=== PATIENT | female | born 1985 | race Caucasian/White ===

== ENCOUNTER 2018-08-29 16:30 | Outpatient (CLI) | payer OTHER ==
[2018-08-29 17:04] LABS: APPEARANCE,URINE SLIGHTLY-CLOUDY; BILIRUBIN,URINE NEGATIVE (NEGATIVE); COLOR,URINE YELLOW; GLUCOSE, URINE NEGATIVE (NEGATIVE); KETONES,URINE NEGATIVE (NEGATIVE); LEUKOCYTE ESTERASE,URINE SMALL (NEGATIVE); NITRITE,URINE NEGATIVE (NEGATIVE); PROTEIN,URINE NEGATIVE (NEGATIVE); URINE SPECIFIC GRAVITY 1.004; UROBILINOGEN,URINE NEGATIVE mg/dL (<2.0)
[2018-08-29 17:21] LABS: URINE AMPHETAMINES SCREEN NEGATIVE; URINE BARBITURATES SCREEN NEGATIVE; URINE BENZODIAZEPINES SCREEN NEGATIVE; URINE COCAINE SCREEN NEGATIVE; URINE MARIJUANA (THC) SCREEN NEGATIVE; URINE METHADONE SCREEN NEGATIVE; URINE PHENCYCLIDINE SCREEN NEGATIVE
[2018-08-29 17:26] LABS: UR PRO/CREAT RATIO RESULT 0.7 mg/mg (0.0-0.2); URINE CREATININE 23.5 mg/dL (16-327); URINE PROTEIN 16.5 mg/dL (<12)
[2018-08-29 17:46] LABS: ABSOLUTE EOSINOPHILS # (AUTO) 0.1 10^3/uL (0.0-0.6); ABSOLUTE LYMPHOCYTES (AUTO) 1.6 10^3/uL (0.5-4.7); ABSOLUTE MONOCYTES (AUTO) 0.7 10^3/uL (0.1-1.4); ABSOLUTE NEUT (AUTO) 7.2 10^3/uL (1.7-8.2); BASOPHILS % (AUTO) 0.4 % (0-2); EOSINOPHILS % (AUTO) 0.6 % (0-6); HEMATOCRIT 37.9 % (36.0-47.0); HEMOGLOBIN 13.5 g/dL (12.0-15.5); MEAN CORPUSCULAR HGB CONC 35.5 g/dL (32.0-36.0); MEAN CORPUSCULAR VOLUME 90 fl (80-97); MONOCYTES % (AUTO) 7.2 % (3-13); PLATELET COUNT 205 10^3/uL (150-450); RED BLOOD COUNT 4.21 10^6/uL (3.72-5.28); RED CELL DISTRIBUTION WIDTH 13.8 % (11.5-14.0); SEGMENTED NEUTROPHILS % (AUTO) 74.8 % (42-78); TOTAL CELLS COUNTED % (AUTO) 100 %; WHITE BLOOD COUNT 9.6 10^3/uL (4.0-10.5)
[2018-08-29 18:09] LABS: ALANINE AMINOTRANSFERASE 33 U/L (9-52); ALBUMIN 3.8 g/dL (3.5-5.0); ALKALINE PHOSPHATASE 159 U/L (38-126); ANION GAP 14 (5-19); ASPARTATE AMINO TRANSFERASE 35 U/L (14-36); BILIRUBIN,DIRECT 0.2 mg/dL (0.0-0.4); BILIRUBIN,TOTAL 0.6 mg/dL (0.2-1.3); BLOOD UREA NITROGEN 12 mg/dL (7-20); CALCIUM 9.6 mg/dL (8.4-10.2); CARBON DIOXIDE 24 mmol/L (22-30); CHLORIDE 101 mmol/L (98-107); GLUCOSE 67 mg/dL (75-110); POTASSIUM 3.9 mmol/L (3.6-5.0); SODIUM 138.6 mmol/L (137-145); TOTAL PROTEIN 6.8 g/dL (6.3-8.2); URIC ACID 5.6 mg/dL (2.5-6.2)
--- NOTE | 2018-08-29 20:43 | Non Stress Test Report ---
Non Stress Test Datetime Report Generated by CPN: 08/29/2018 20:43 DEMOGRAPHIC EGA NST: 38.5 INDICATION Indication for Study: Ordered by Provider Indication for Study (NST) Other: pre-e w/u URINE RESULTS Urine Protein, NST: Negative Urine Ketones - NST: Negative Urine Glucose - NST: Negative Urine Blood - NST: Negative MONITORING Monitor Explained: Monitor Explained; Test Explained; Patient Verbalized Understanding Time on Monitor: 08/29/2018 17:08 Time off Monitor: 08/29/2018 19:51 NST Duration: 163 NST INTERVENTIONS NST Interventions: PO Hydration; Reposition Patient Physician Notified NST: DR JENIFFER BABY A: [id number] BABY A Movement : Present Contraction Frequency : OCC FHR Baseline : 125 Accelerations : 15X15 Variability : Moderate 6-25bpm NST Review: Meets Criteria for Reactive NST NST Review and Verified By : darlene HERNANDEZT Results: Reactive NST REPORT Report Trigger: Send Report
== END 2018-08-29 20:10 | disposition home or self-care (01) ==
LOC: LC 16:30
PROVIDERS: ATTEND Obstetrics & Gynecology
PROC: 4A1HXCZ Monitoring of Products of Conception, Cardiac Rate, External Approach (ICD-10-PCS; principal; 2018-08-29)
DX: O47.1 False labor at or after 37 completed weeks of gestation (principal); Z3A.38 38 weeks gestation of pregnancy
CPT/HCPCS: 36415; 59025; 80053; 80307; 81005; 82570; 83615; 84156; 84550; 85025

== ENCOUNTER 2018-09-05 11:42 | Outpatient (CLI) | payer OTHER ==
[2018-09-05 12:08] LABS: APPEARANCE,URINE CLEAR; BILIRUBIN,URINE NEGATIVE (NEGATIVE); COLOR,URINE COLORLESS; GLUCOSE, URINE NEGATIVE (NEGATIVE); KETONES,URINE NEGATIVE (NEGATIVE); LEUKOCYTE ESTERASE,URINE NEGATIVE (NEGATIVE); NITRITE,URINE NEGATIVE (NEGATIVE); PROTEIN,URINE NEGATIVE (NEGATIVE); URINE SPECIFIC GRAVITY 1.002; UROBILINOGEN,URINE NEGATIVE mg/dL (<2.0)
[2018-09-05 12:27] LABS: URINE AMPHETAMINES SCREEN NEGATIVE; URINE BARBITURATES SCREEN NEGATIVE; URINE BENZODIAZEPINES SCREEN NEGATIVE; URINE COCAINE SCREEN NEGATIVE; URINE MARIJUANA (THC) SCREEN NEGATIVE; URINE METHADONE SCREEN NEGATIVE; URINE PHENCYCLIDINE SCREEN NEGATIVE
[2018-09-05 12:31] LABS: UR PRO/CREAT RATIO RESULT 0.8 mg/mg (0.0-0.2); URINE CREATININE 20.1 mg/dL (16-327); URINE PROTEIN 16.9 mg/dL (<12)
[2018-09-05 12:53] LABS: ABSOLUTE LYMPHOCYTES (AUTO) 1.2 10^3/uL (0.5-4.7); ABSOLUTE MONOCYTES (AUTO) 0.4 10^3/uL (0.1-1.4); ABSOLUTE NEUT (AUTO) 6.3 10^3/uL (1.7-8.2); BASOPHILS % (AUTO) 0.2 % (0-2); EOSINOPHILS % (AUTO) 0.2 % (0-6); HEMATOCRIT 37.8 % (36.0-47.0); HEMOGLOBIN 13.3 g/dL (12.0-15.5); LYMPHOCYTES % (AUTO) 15.4 % (13-45); MEAN CORPUSCULAR HGB CONC 35.2 g/dL (32.0-36.0); MEAN CORPUSCULAR VOLUME 91 fl (80-97); PLATELET COUNT 193 10^3/uL (150-450); RED BLOOD COUNT 4.15 10^6/uL (3.72-5.28); RED CELL DISTRIBUTION WIDTH 13.7 % (11.5-14.0); SEGMENTED NEUTROPHILS % (AUTO) 79.2 % (42-78); TOTAL CELLS COUNTED % (AUTO) 100 %; WHITE BLOOD COUNT 7.9 10^3/uL (4.0-10.5)
[2018-09-05 13:19] LABS: URIC ACID 5.9 mg/dL (2.5-6.2)
[2018-09-05 13:20] LABS: ALANINE AMINOTRANSFERASE 26 U/L (9-52); ALBUMIN 3.5 g/dL (3.5-5.0); ALKALINE PHOSPHATASE 149 U/L (38-126); ANION GAP 11 (5-19); ASPARTATE AMINO TRANSFERASE 26 U/L (14-36); BILIRUBIN,DIRECT 0.1 mg/dL (0.0-0.4); BILIRUBIN,TOTAL 0.4 mg/dL (0.2-1.3); BLOOD UREA NITROGEN 6 mg/dL (7-20); CARBON DIOXIDE 25 mmol/L (22-30); CHLORIDE 104 mmol/L (98-107); GLUCOSE 92 mg/dL (75-110); SODIUM 140.3 mmol/L (137-145); TOTAL PROTEIN 6.3 g/dL (6.3-8.2)
--- NOTE | 2018-09-05 13:55 | L&D Progress Notes ---
PROGRESS NOTES Datetime Report Generated by CPN: 09/05/2018 13:55 PROGRESS NOTE Impression: Eclampsia - Mild Plan Other: Left AMA Informed Consent Obtained: Induction of Labor Comment: Pre E with elevated BPs x 3 in office and 24 hr UTP 564. Now protein: creatinine ratio now higher and severe range BP in office today. Asymptomatic. However, 39+5 and recommended IOL. Pt declines. Reviewed risks of Ecclampsia, abruption, maternal/ morbidity and mortality. Also reviewed macrosomia with EFW 10# on 08/27. Reviewed risks at length and patient persists in declining IOL. SHe agrees to come in for IOL on Adalid evening. She was advised that if declining IOl that she will need to sign AMA. AMA form signed. cvx /. FETUS A Monitoring: External US SIGNATURE SIGNATURE: [id number];[id number] SIGNATURE: [id number] Signature: with User ID: [email or web address]
--- NOTE | 2018-09-05 14:19 | Non Stress Test Report ---
Non Stress Test Datetime Report Generated by CPN: 09/05/2018 14:19 DEMOGRAPHIC EGA NST: 39.5 INDICATION Indication for Study: Ordered by Provider MONITORING Monitor Explained: Monitor Explained; Test Explained; Patient Verbalized Understanding Time on Monitor: 09/05/2018 11:51 Time off Monitor: 09/05/2018 13:54 NST Duration: 123 NST INTERVENTIONS NST Interventions: PO Hydration; Reposition Patient Physician Notified NST: Dr. Marks BABY A: [id number] BABY A Movement : Present Contraction Frequency : x1 FHR Baseline : 130 Accelerations : 15X15 Decelerations : None Variability : Moderate 6-25bpm NST Review: Meets Criteria for Reactive NST NST Review and Verified By : Jose Antonio Hauser RN NST Results: Reactive NST REPORT Report Trigger: Send Report
== END 2018-09-05 14:03 | disposition left against medical advice (07) ==
LOC: LC 11:42
PROVIDERS: ATTEND Student in an Organized Health Care Education/Training Program
PROC: 4A1HXCZ Monitoring of Products of Conception, Cardiac Rate, External Approach (ICD-10-PCS; principal; 2018-09-05)
DX: Z34.93 Encounter for supervision of normal pregnancy, unspecified, third trimester (principal)
CPT/HCPCS: 36415; 59025; 80053; 80307; 81005; 82570; 83615; 84156; 84550; 85025; 86592; 86850; 86900; 86901

== ENCOUNTER 2018-09-07 20:06 | Inpatient (IN) | payer OTHER ==
[2018-09-07] MEDS ORDERED: DINOPROSTONE 10 MG VAGINAL INSERT.SR PV PRN (20:24)
[2018-09-07] MEDS ORDERED: RINGERS SOLUTION,LACTATED 300 ML IV ONE (20:24)
[2018-09-07 20:46] LABS: APPEARANCE,URINE CLEAR; BILIRUBIN,URINE NEGATIVE (NEGATIVE); COLOR,URINE COLORLESS; GLUCOSE, URINE NEGATIVE (NEGATIVE); KETONES,URINE NEGATIVE (NEGATIVE); LEUKOCYTE ESTERASE,URINE NEGATIVE (NEGATIVE); NITRITE,URINE NEGATIVE (NEGATIVE); PROTEIN,URINE NEGATIVE (NEGATIVE); URINE SPECIFIC GRAVITY 1.002; UROBILINOGEN,URINE NEGATIVE mg/dL (<2.0)
[2018-09-07 20:51] LABS: ABSOLUTE BASOPHILS # (AUTO) 0.1 10^3/uL (0.0-0.2); ABSOLUTE LYMPHOCYTES (AUTO) 1.9 10^3/uL (0.5-4.7); ABSOLUTE MONOCYTES (AUTO) 0.7 10^3/uL (0.1-1.4); ABSOLUTE NEUT (AUTO) 6.5 10^3/uL (1.7-8.2); BASOPHILS % (AUTO) 0.7 % (0-2); EOSINOPHILS % (AUTO) 0.5 % (0-6); HEMATOCRIT 37.4 % (36.0-47.0); HEMOGLOBIN 13.3 g/dL (12.0-15.5); MEAN CORPUSCULAR HEMOGLOBIN 32.2 pg (27.0-33.4); MEAN CORPUSCULAR HGB CONC 35.6 g/dL (32.0-36.0); MEAN CORPUSCULAR VOLUME 90 fl (80-97); MONOCYTES % (AUTO) 7.5 % (3-13); PLATELET COUNT 197 10^3/uL (150-450); RED BLOOD COUNT 4.14 10^6/uL (3.72-5.28); RED CELL DISTRIBUTION WIDTH 13.6 % (11.5-14.0); SEGMENTED NEUTROPHILS % (AUTO) 70.3 % (42-78); TOTAL CELLS COUNTED % (AUTO) 100 %; WHITE BLOOD COUNT 9.3 10^3/uL (4.0-10.5)
[2018-09-07] MEDS: RINGERS SOLUTION,LACTATED 1,000 ML IV PRN (20:55)
[2018-09-07 21:11] LABS: URINE AMPHETAMINES SCREEN NEGATIVE; URINE BARBITURATES SCREEN NEGATIVE; URINE BENZODIAZEPINES SCREEN NEGATIVE; URINE COCAINE SCREEN NEGATIVE; URINE MARIJUANA (THC) SCREEN NEGATIVE; URINE METHADONE SCREEN NEGATIVE; URINE PHENCYCLIDINE SCREEN NEGATIVE
[2018-09-07 21:12] LABS: ALANINE AMINOTRANSFERASE 26 U/L (9-52); ALBUMIN 3.6 g/dL (3.5-5.0); ALKALINE PHOSPHATASE 156 U/L (38-126); ANION GAP 11 (5-19); ASPARTATE AMINO TRANSFERASE 26 U/L (14-36); BILIRUBIN,DIRECT 0.1 mg/dL (0.0-0.4); BILIRUBIN,TOTAL 0.3 mg/dL (0.2-1.3); BLOOD UREA NITROGEN 7 mg/dL (7-20); CALCIUM 9.4 mg/dL (8.4-10.2); CARBON DIOXIDE 24 mmol/L (22-30); CHLORIDE 103 mmol/L (98-107); GLUCOSE 87 mg/dL (75-110); POTASSIUM 4.1 mmol/L (3.6-5.0); SODIUM 138.2 mmol/L (137-145); TOTAL PROTEIN 6.5 g/dL (6.3-8.2); URIC ACID 5.7 mg/dL (2.5-6.2)
[2018-09-07] MEDS ORDERED: DINOPROSTONE 10 MG VAGINAL INSERT.SR ONE (21:55)
--- NOTE | 2018-09-07 23:35 | Admission Physical ---
Datetime Report Generated by CPN: 09/07/2018 23:34 CURRENT ADMISSION Chief Complaint: Scheduled Induction of Labor Indication for Induction: Eclampsia-Mild Admit Impression : Term, Intrauterine ; No Active Labor; Intact Membranes; Induction of Labor Admit Plan: Admit to Unit; Initiate Labor Induction Protocol ALLERGIES Medication Allergies: No Medication Allergies: No Known Allergies (09/07/2018) Latex: No Latex Allergies OBSTETRICAL HISTORY EDC: 09/07/2018 00:00 : 1 Para: 0 Term: 0 : 0 SAB: 0 IAB: 0 Ectopic: 0 Livin Cesareans: 0 VBACs: 0 Multiple Births: 0 Gestational Diabetes: No Rh Sensitization: No Incompetent Cervix: No AURA: No Infertility: No ART Treatment: No Uterine Anomaly: No IUGR: No Hx Previous C/S: No Macrosomia: Yes Hx Loss/Stillborn: No PIH: No Hx : No Placenta Previa/Abruption: No Depression/PP Depression: No PTL/PROM: No Post Hemorrhage: No Current Procedures: Ultrasound; NST Obstetrical History Comments: G1 - Current SEE RECORDS Alcohol: No Marijuana : No Cocaine: No Other Illicit Drugs: No MEDICAL HISTORY Diabetes: No Blood Transfusion: No Pulmonary Disease (Asthma, TB): No Breast Disease: No Hypertension: No Bank Clerk Surgery: No Heart Disease: No Hosp/Surgery: Yes Autoimmune Disorder: No Anesthetic Complications: No Kidney Disease: No Abnormal Pap Smear: No Neuro/Epilepsy: No Psychiatric Disorders: No Other Medical Diseases: No Hepatitis/Liver Disease: No Significant Family History: No Varicosities/Phlebitis: No Trauma/Violence : No Thyroid Dysfunction: No Medical History Comments: Tonsilectomy at age 7 INFECTIOUS HISTORY Gonorrhea: No Genital Herpes: No Chlamydia: No Tuberculosis: No Syphilis: No Hepatitis: No HIV/AIDS Exposure: No Rash or Viral Illness: No HPV: No PHYSICAL EXAM General: Normal HEENT: Normal Neurologic: Normal Thyroid: Deferred Heart: Normal Lungs: Normal Breast: Deferred Back: Normal Abdomen: Normal Genitourinary Exam: Normal Extremities: Normal DTRs: Normal Pelvic Type: Adequate Vital Signs: Reviewed VAGINAL EXAM Contraction Comments: rare MEMBRANES Membranes: Ruptured FETUS A EGA: 40.0 Monitoring: External US FHR- Baseline: 130 Variability: Moderate 6-25bpm Accelerations: 15X15 Decelerations: None FHR Category: Category I Presentation: Vertex Admit Comment: 33yo at 40+0ega presents for IOL due to PreE. Pt was scheduled for IOL on 09/02 and declined/did not show up. Patient then sent from office on 09/05 with noted severe range BP in office - known 24 hr UTP 564mg. On 09/05 at 39+5ega with known preE it was recommended that she be induced. She declined and signed out AMA. She has remained asymptomatic. She presents today for her IOL. also complicated by suspected macrosomia with growth on 08/27 4537g (10#). GBS negative. All methods of Induction and risks of induction reviewed with patient on 09/05. Reviewed cervidil/cytotec, pitocin and cooks catheter. She informs nursing tonight that she wants minimal intervention but does agree to heplock IV and then does agree to cervidil but states that she will decline cooks in the morning. We will have to readress induction of labor and the process again in the morning. Reviewed with patient on 09/05 also regarding EFW and potential labor course including possible cephalopelvic disproportion which would necessitate section. Will monitor BPs and labs and not start magnesium sulfate at this time but may be needed in the future or after delivery. GBS negative. PLANS FOR LABOR AND DELIVERY Labor and Delivery: None Pain Management: Natural Feeding Preference: Breast Benefit of Breast Feed Discussed: Yes Circumcision: Yes INFORMED CONSENT Informed Consent Obtained: Vaginal Delivery; Induction of Labor; Risks, Benefits and Alternatives Discussed Signature: Electronically signed by Martha Marks MD ([facility]) on 09/07/2018 at 23:33 with User ID: [email or web address]
[2018-09-08] MEDS ORDERED: OXYTOCIN/NORMAL SALINE 20 UNIT/1,000 ML RTUINJ IV PRN (11:44)
[2018-09-08] MEDS ORDERED: LIDOCAINE 1% INJ-PF (10 MG/ML) 30 ML SDV ONE (12:02)
[2018-09-08] MEDS ORDERED: OXYTOCIN/NORMAL SALINE 20 UNIT/1,000 ML RTUINJ ONE (12:02)
[2018-09-08] MEDS ORDERED: OXYTOCIN 10 UNIT/ML VIAL ONE (12:02)
[2018-09-08] MEDS ORDERED: MISOPROSTOL 0.2 MG TABLET ONE (12:02)
[2018-09-08] MEDS: RINGERS SOLUTION,LACTATED 1,000 ML IV PRN (12:30)
[2018-09-09] MEDS ORDERED: NALBUPHINE HCL INJ 10 MG/1 ML AMPULE INJ ONE (01:26)
[2018-09-09] MEDS ORDERED: PROMETHAZINE HCL INJ 25 MG/1 ML VIAL IV ONE (01:27)
[2018-09-09] MEDS ORDERED: NALBUPHINE HCL INJ 10 MG/1 ML AMPULE ONE (01:28)
[2018-09-09] MEDS ORDERED: PROMETHAZINE HCL INJ 25 MG/1 ML VIAL ONE (01:28)
[2018-09-09] MEDS: RINGERS SOLUTION,LACTATED 1,000 ML IV PRN (01:34)
--- NOTE | 2018-09-09 08:56 | L&D Progress Notes ---
PROGRESS NOTES Datetime Report Generated by CPN: 09/09/2018 08:56 PROGRESS NOTE Impression Other: IUP @ 40w2d Procedures: Artificial ROM; Sterile Vag Exam Plan: Continue Present Management; Induction Informed Consent Obtained: Vaginal Delivery; Induction of Labor; Risks, Benefits and Alternatives Discussed Informed Consent Obtained: Vaginal Delivery; Induction of Labor; Risks, Benefits and Alternatives Discussed Vital Signs : Reviewed; Within Normal Limits Comment: S: breathing with contractions, not planning on epidural for pain relief O:VSS, pit @ 10mu/min, cat I tracing, cervix as stated A: IUP @ [id number] P: continue IOL. Reviewed plan of care with patient and . Anticipate delivery. Epidural prn. VAGINAL EXAM Contractions: rare LAST VAGINAL EXAM-NURSING Dilitation: 7.0 Dilitation: 6.0 Dilitation: 4.5 Dilitation: 3.0 Dilitation: 3.0 Dilitation: 1.5 Dilitation: FT Effacement: 100 Effacement: 100 Effacement: 90 Effacement: 80 Effacement: 60 Effacement: 50 Effacement: thick Station: -1 Station: 0 Station: 0 Station: -1 Station: -2 Station: -2 Station: high Contractions: Pt denies feeling ctx's. Contractions: Pt denies feeling ctx's. Contractions: Pt denies feeling ctx's; uterine irritability noted. Contractions: Pt denies feeling ctx's; uterine irritability noted. Contractions: Pt denies feeling ctx's; uterine irritability noted. Contractions: Pt denies feeling ctx's; uterine irritability noted. Contractions: Pt denies feeling ctx's; uterine irritability noted. Contractions: Pt denies feeling ctx's; uterine irritability noted. MEMBRANES Membranes: Ruptured Amniotic Fluid Color: Clear FETUS A FHR - Baseline: 125 Monitoring: External US Variability: Moderate 6-25bpm Accelerations: 15X15 Decelerations: None FHR Category: Category I Presentation: Vertex SIGNATURE SIGNATURE: [id number];[id number];[id number] SIGNATURE: [id number];[id number];[id number] SIGNATURE: [id number];,[id number] Assignment: Josee Lugo MD Signature: with User ID: [email or web address] : with User ID: [email or web address]
[2018-09-09] MEDS ORDERED: DIPHENHYDRAMINE HCL 50 MG/ML VIAL ONE (14:47)
[2018-09-09] MEDS ORDERED: DIPHENHYDRAMINE HCL 50 MG/ML VIAL IV ONE (14:49)
[2018-09-09] MEDS ORDERED: LIDOCAINE 2% JELLY 5 ML TUBE ONE (16:06)
[2018-09-09] MEDS ORDERED: DIPHENHYDRAMINE HCL 25 MG CAPSULE PO PRN (17:49)
[2018-09-09] MEDS ORDERED: OXYTOCIN/NORMAL SALINE 20 UNIT/1,000 ML RTUINJ IV PRN (17:49)
[2018-09-09] MEDS ORDERED: BENZOCAINE/MENTHOL AEROSOL SPRAY 56 ML TOP PRN (17:49)
[2018-09-09] MEDS ORDERED: MAGNESIUM HYDROXIDE SUSP 30 ML UDCUP PO PRN (17:49)
[2018-09-09] MEDS ORDERED: DIPH/PERTUSS(ACELL)/TETANUS VAC/PF 0.5 ML SYR (>=10YO) IM PRN (17:49)
[2018-09-09] MEDS ORDERED: PSEUDOEPHEDRINE HCL 30 MG TABLET PO PRN (17:49)
[2018-09-09] MEDS ORDERED: GLYCERIN/WITCH HAZEL LEAF 1 EACH MED..PAD TP PRN (17:49)
[2018-09-09] MEDS ORDERED: MEASLES,MUMPS&RUBELLA VACC/PF 0.5 ML VIAL SUBCUT PRN (17:49)
[2018-09-09] MEDS ORDERED: DIBUCAINE 1% OINTMENT 28 GM TP PRN (17:49)
[2018-09-09] MEDS ORDERED: PROMETHAZINE HCL 25 MG TABLET PO PRN (17:49)
[2018-09-09] MEDS ORDERED: NA PHOS,M-B/NA PHOS,DI-BA (ADULT) 133 ML ENEMA PR PRN (17:49)
[2018-09-09] MEDS ORDERED: ACETAMINOPHEN WITH CODEINE #3 TABLET PO PRN ×2 (17:49)
[2018-09-09] MEDS ORDERED: PROMETHAZINE HCL INJ 25 MG/1 ML VIAL IV PRN (17:49)
[2018-09-09] MEDS ORDERED: ACETAMINOPHEN 325 MG TABLET PO PRN (17:49)
[2018-09-09] MEDS ORDERED: PROMETHAZINE HCL 25 MG SUPP.RECT PR PRN (17:49)
[2018-09-09] MEDS ORDERED: IBUPROFEN 800 MG TABLET ONE (18:25)
--- NOTE | 2018-09-09 19:47 | Delivery Summary ---
Del Sum A-C Datetime Report Generated by CPN: 09/09/2018 19:47 DELIVERY PERSONNEL DELIVERY PERSONNEL: [id number] Delivery Doctor:: Nicole Mayer CNM Nurse Dean Of Instruction Certified:: Nicole Mayer CNM Labor and Delivery Nurse:: Pretty Cruz RNentry level java developer Nurse:: Delia Marks RN Radiologist Diagnostic/CITY PLANNING AIDE: Adelaide Holland CNA II Additional Personnel: : MORRSI Bruno MATERNAL INFORMATION Delivery Anesthesia: None Medications After Delivery: Pitocin Bolus-Please Comment Meds After Delivery Comment: Pitocin 20 units in 1000 ml nss open for bolus Maternal Complications: None Provider Comments: pt progressed to c/c/0 with urge to push, started pushing and with much coaching, position changes and maternal effort went on to delivered a viable baby boy in ALEX position thru nuchal x1. Baby placed on maternal abdomen and cord allowed to stop pulsating then clamped x2 and cut by FOB (cord blood obtained). Placenta delivered spontaneously intact (3vc noted), fundus firm at U-1 and minimal bleeding. Vaginal and perineal inspection revealed no lacerations and labial abrasions as stated. Mother and baby remain skin to skin,stable and bonding at this time. LABOR SUMMARY EDC: 09/07/2018 00:00 No. Babies in Womb: 1 Attempted: No Labor Anesthesia: None LABOR INFORMATION Reason for Induction: Pre-Eclampsia Onset of Labor: 09/09/2018 08:45 Complete Dilatation: 09/09/2018 15:42 Cervical Ripening Agents: Cervidil Oxytocin: Induction Group B Beta Strep: Negative Steroids Given: None Reason Steroids Not Administered: Not Applicable MEMBRANES Membranes Rupture Method: Artificial Rupture of Membranes: 09/09/2018 08:47 Length of Rupture (hr): 8.62 Amniotic Fluid Color: Clear Amniotic Fluid Amount: Small Amniotic Fluid Odor: Normal STAGES OF LABOR Stage 1 hr: 6 Stage 1 min: 57 Stage 2 hr: 1 Stage 2 min: 42 Stage 3 hr: 0 Stage 3 min: 8 Total Time in Labor hr: 8 Total Time in Labor min: 47 VAGINAL DELIVERY Episiotomy: None Laceration #1: None Laceration Extension #1: N/A Other Laceration: bilateral labial abrasions-hemostatic Laceration Repair: Not Applicable Laceration Repair Note: n/a Sponge Count Correct: N/A Sharps Count Correct: Yes CSECTION DELIVERY Primary Indication: N/A Secondary Indication: N/A CSection Incidence: N/A Labor: N/A Elective: N/A CSection Incision: N/A BABY A INFORMATION Infant Delivery Date/Time: 09/09/2018 17:24 Method of Delivery: Vaginal Born in Route : No : N/A Forceps: N/A Vacuum Extraction: N/A Shoulder Dystocia : No PRESENTATION/POSITION BABY A Presentation: Cephalic Cephalic Presentation: Vertex Vertex Position: Right Occipital Anterior Breech Presentation: N/A PLACENTA INFORMATION BABY A Placenta Delivery Time : 09/09/2018 17:32 Placenta Method of Delivery: Spontaneous Placenta Status: Delivered SCORES BABY A Heart Rate 1 min: >100 bpm Resp Effort 1 min: Good Cry Reflex Irritability 1 min: Cough or Sneeze or Pulls Away Muscle Tone 1 min: Active Motion Color 1 min: Blue/Pale SCORE 1 MIN: 8 Heart Rate 5 min: >100 bpm Resp Effort 5 min: Slow, Irregular Reflex Irritability 5 min: Cough or Sneeze or Pulls Away Muscle Tone 5 min: Active Motion Color 5 min: Body New Site, Extremities Blue Resuscitation Effort 5 min: N/A SCORE 5 MIN: 8 Resuscitation Effort 10 min: N/A INFORMATION BABY A Gestational Age at Delivery: 40.2 Gestational Status: Full Term- 39- 40.6 Weeks Infant Outcome : Liveborn Infant Condition : Stable Infant Sex: Male IDENTIFICATION BABY A Infant Verification Date/Time: 09/09/2018 18:00 ID Band Number: [id number] Mother's Name Verified: Yes RN Verifying Infant: R Selina RN Additional Verifying Personnel: B PlaceSpeak RN WEIGHT/LENGTH BABY A Birthweight (gm): 4208 Weight (lb): 9 Infant Weight (oz): 4 Length (in): 22.00 Infant Length (cm): 55.88 CORD INFORMATION BABY A No. Cord Vessels: 3 Nuchal Cord : Around Neck x1, Loose Cord Blood Taken: N/A Infant Suction: Mouth; Nose ASSESSMENT BABY A Complications: None Physical Findings at Delivery: Caput Succedaneum; Molding of the Head; Bruising Respirations: Grunting Skin to Skin: Yes Skin to Skin Time (min): 75 Parts Designer/ALS Called : No Care By: Princess Castellon RN Transferred To: Remains with Mother BABY B INFORMATION : N/A SIGNATURES Assignment: Josee Lugo MD Signature: with User ID: [email or web address] : with User ID: [email or web address]
[2018-09-09] MEDS: FAMOTIDINE 20 MG TABLET PO SCH (22:40)
[2018-09-09] MEDS: IBUPROFEN 800 MG TABLET PO SCH (22:40)
[2018-09-10] MEDS: IBUPROFEN 800 MG TABLET PO SCH ×3 (05:38→21:53)
[2018-09-10 08:03] LABS: HEMATOCRIT 40.6 % (36.0-47.0); HEMOGLOBIN 14.1 g/dL (12.0-15.5); MEAN CORPUSCULAR HGB CONC 34.7 g/dL (32.0-36.0); MEAN CORPUSCULAR VOLUME 92 fl (80-97); PLATELET COUNT 206 10^3/uL (150-450); RED CELL DISTRIBUTION WIDTH 13.7 % (11.5-14.0)
[2018-09-10 08:13] LABS: WHITE BLOOD COUNT 18.9 10^3/uL (4.0-10.5)
--- NOTE | 2018-09-10 09:20 | PDOC PROGRESS REPORT ---
Subjective-OB Progress Note for:: 09/10/18 Physical Exam (OB) Vital Signs: Temp Pulse Resp BP Pulse Ox 97.6 F 79 16 119/74 98 09/10/18 08:45 09/10/18 08:45 09/10/18 08:45 09/10/18 08:45 09/10/18 08:45 Intake & Output 09/09/18 09/10/18 09/11/18 06:59 06:59 06:59 Intake Total 1000 1240 Balance 1000 1240 - PIH/Pre-Eclampsia DTR's: 1 + Clonus: Negative Headache: Absent Epigastric Pain: No Visual Changes: No - Lochia Lochia Amount: Scant < 10 ml Lochia Color: Rubra/Red - Abdomen Description: Soft, Round Hernia Present: No Bowel Sounds: Normoactive Flatus Presence: Present Stool: No Fundal Description: Firm, Midline Fundal Height: u/u - u/2 Objective-Diagnostic Laboratory: 09/10/18 07:21 09/07/18 20:40 09/10/18 07:21 WBC 18.9 H D RBC 4.40 Hgb 14.1 Hct 40.6 MCV 92 MCH 32.0 MCHC 34.7 RDW 13.7 Plt Count 206
[2018-09-10] MEDS: DOCUSATE SODIUM 100 MG CAPSULE PO SCH ×3 (10:03→17:51)
[2018-09-10] MEDS: SENNOSIDES/DOCUSATE 8.6-50 MG 1 EACH TABLET PO SCH (10:04)
[2018-09-10] MEDS: FAMOTIDINE 20 MG TABLET PO SCH (10:04)
[2018-09-10] MEDS: FERROUS SULFATE 325 MG TABLET PO SCH ×2 (10:04→17:52)
[2018-09-10] MEDS: PRENATAL VITAMIN W DHA CAPSULE PO SCH (10:04)
[2018-09-11] MEDS: FAMOTIDINE 20 MG TABLET PO SCH ×2 (01:58→09:34)
[2018-09-11 07:58] LABS: HEMATOCRIT 36.6 % (36.0-47.0); HEMOGLOBIN 12.5 g/dL (12.0-15.5); MEAN CORPUSCULAR HEMOGLOBIN 31.9 pg (27.0-33.4); MEAN CORPUSCULAR HGB CONC 34.2 g/dL (32.0-36.0); MEAN CORPUSCULAR VOLUME 93 fl (80-97); PLATELET COUNT 168 10^3/uL (150-450); RED BLOOD COUNT 3.93 10^6/uL (3.72-5.28); RED CELL DISTRIBUTION WIDTH 13.9 % (11.5-14.0); WHITE BLOOD COUNT 10.9 10^3/uL (4.0-10.5)
[2018-09-11] MEDS: IBUPROFEN 800 MG TABLET PO SCH ×2 (09:23→13:34)
[2018-09-11] MEDS: DOCUSATE SODIUM 100 MG CAPSULE PO SCH (09:33)
[2018-09-11] MEDS: PRENATAL VITAMIN W DHA CAPSULE PO SCH (09:33)
[2018-09-11] MEDS: SENNOSIDES/DOCUSATE 8.6-50 MG 1 EACH TABLET PO SCH (09:34)
[2018-09-11] MEDS: FERROUS SULFATE 325 MG TABLET PO SCH (09:34)
--- NOTE | 2018-09-11 10:03 | PDOC DISCHARGE SUMMARY ---
Final Diagnosis Discharge Date: 09/11/18 - Final Diagnosis (1) Delivery normal Is this a current diagnosis for this admission?: Yes (2) Pre-eclampsia Is this a current diagnosis for this admission?: Yes Discharge Data - Discharge Medication Home Medications: Vits96/Iron Fum/Folic [ Tablet] 1 tab PO DAILY 08/29/18 Reason(s) for Admission: Induction of Labor Procedures: NST Intrapartum Procedure(s): Spontaneous Vaginal Delivery Complication(s): Laceration-Labial Laceration-Degree: 1st - Diagnosis Test Laboratory: Temp Pulse Resp BP Pulse Ox 98.0 F 62 17 123/77 99 09/11/18 07:44 09/11/18 07:44 09/11/18 07:44 09/11/18 07:44 09/11/18 07:44 09/07/18 09/07/18 09/10/18 20:30 20:40 07:21 RBC 4.14 4.40 Hgb 13.3 14.1 Hct 37.4 40.6 Urine Opiates Screen NEGATIVE 09/11/18 07:15 RBC 3.93 Hgb 12.5 Hct 36.6 Urine Opiates Screen - Discharge information/Instructions Discharge Activity: Activity As Tolerated, Pelvic Rest Discharge Diet: Regular Disposition: HOME, SELF-CARE Follow up with: [facility] in: 3, Weeks
[2018-09-11 14:05] VITALS: BP 119/74
== END 2018-09-11 15:43 | disposition home or self-care (01) | DRG 807 ==
LOC: LC 20:06 → LR 21:00 → 2S 09-09 20:10
PROVIDERS: ADMIT Student in an Organized Health Care Education/Training Program; ATTEND Student in an Organized Health Care Education/Training Program
PROC: 4A1HXCZ Monitoring of Products of Conception, Cardiac Rate, External Approach (ICD-10-PCS; 2018-09-08)
PROC: 10E0XZZ Delivery of Products of Conception, External Approach (ICD-10-PCS; principal; 2018-09-09)
PROC: 0UQMXZZ Repair Vulva, External Approach (ICD-10-PCS; 2018-09-09)
PROC: 3E0P7VZ Introduction of Hormone into Female Reproductive, Via Natural or Artificial Opening (ICD-10-PCS; 2018-09-09)
PROC: 3E033VJ Introduction of Other Hormone into Peripheral Vein, Percutaneous Approach (ICD-10-PCS; 2018-09-09)
DX: O14.04 Mild to moderate pre-eclampsia, complicating childbirth (principal); Z37.0 Single live birth; O70.0 First degree perineal laceration during delivery; O69.81X0 Labor and delivery complicated by cord around neck, without compression, not applicable or unspecified; Z3A.40 40 weeks gestation of pregnancy
CPT/HCPCS: 36415; 80053; 80307; 81001; 83615; 84550; 85025; 85027; 86592; 86850; 86900; 86901; J1200; J2300; J2550; J2590; J3490

== ENCOUNTER 2018-10-01 10:01 | Emergency (ER) | payer OTHER ==
--- NOTE | 2018-10-01 10:21 | ER Document Report ---
ED Medical Screen (RME) - General Chief Complaint: Abscess Stated Complaint: POSSIBLE ABSCESS Time Seen by Provider: 10/01/18 10:18 Mode of Arrival: Ambulatory Information source: Patient Notes: Pt presents to the ED sent over by [facility] for possible right breast abscess. Pt reports Dr. Lugo wanted her to have a US done. She is 3 weeks I have greeted and performed a rapid initial assessment of this patient. A comprehensive ED assessment and evaluation of the patient, analysis of test results and completion of the medical decision making process will be conducted by additional ED providers. TRAVEL OUTSIDE OF THE [place] IN LAST 30 DAYS: No - Related Data Allergies/Adverse Reactions: No Known Allergies Allergy (Verified 10/01/18 10:06) Physical Exam - Vital signs Vitals: Temp Pulse Resp BP Pulse Ox 99.0 F 87 16 121/72 99 10/01/18 10:14 10/01/18 10:14 10/01/18 10:14 10/01/18 10:14 10/01/18 10:14 Course - Vital Signs Vital signs: Temp Pulse Resp BP Pulse Ox 99.0 F 87 16 121/72 99 10/01/18 10:14 10/01/18 10:14 10/01/18 10:14 10/01/18 10:14 10/01/18 10:14 Doctor's Discharge - Discharge Referrals: ADRY AGUIAR MD [Primary Care Provider] - Follow up as needed
--- NOTE | 2018-10-01 10:54 | ER Document Report ---
ED Skin Rash/Insect Bite/Abscs - General Chief Complaint: Abscess Stated Complaint: POSSIBLE ABSCESS Time Seen by Provider: 10/01/18 10:18 Mode of Arrival: Ambulatory Information source: Patient Notes: Patient is a 33-year-old female who presents to the emergency department, referred by Dr. Lugo at [facility] for left breast abscess. Patient is 3 weeks post vaginal delivery. Patient reports that on Saturday she had a clogged milk duct to the left breast, she was placed on Keflex. Patient reports she then developed redness patient has swelling to the area and was zimmer bsequently placed on Bactrim and given a dose of Rocephin. Patient went back to [facility] this morning and was referred to the emergency department for ultrasound of the breast and surgical consult. Patient denies any fevers, nausea, vomiting or pain. Patient is otherwise healthy with no chronic medical conditions. TRAVEL OUTSIDE OF THE [place] IN LAST 30 DAYS: No - Related Data Allergies/Adverse Reactions: No Known Allergies Allergy (Verified 10/01/18 10:06) Past Medical History - General Information source: Patient - Social History Smoking Status: Never Smoker Chew tobacco use (# tins/day): No Frequency of alcohol use: None Drug Abuse: None Family History: Reviewed & Not Pertinent Patient has suicidal ideation: No Patient has homicidal ideation: No - Medical History Medical History: Negative Renal/ Medical History: Denies: Hx Peritoneal Dialysis Surgical Hx: Negative - Immunizations Immunizations up to date: Yes Review of Systems - Review of Systems Constitutional: No symptoms reported EENT: No symptoms reported Cardiovascular: No symptoms reported Respiratory: No symptoms reported Gastrointestinal: No symptoms reported Genitourinary: No symptoms reported Female Genitourinary: No symptoms reported Musculoskeletal: No symptoms reported Skin: See HPI Hematologic/Lymphatic: No symptoms reported Neurological/Psychological: No symptoms reported Physical Exam - Vital signs Vitals: Temp Pulse Resp BP Pulse Ox 99.0 F 87 16 121/72 99 10/01/18 10:14 10/01/18 10:14 10/01/18 10:14 10/01/18 10:14 10/01/18 10:14 - Notes Notes: Patient was referred by Dr. Lugo to the emergency department for ultrasound of the left breast to evaluate for abscess. Dr. Lugo already consulted general surgery who is going to see the patient in the emergency department after the ultrasound is reported. Patient has large area of erythema and induration noted to the left breast. Patient declines the need for any pain medication. Patient reports that she is breast-feeding however has stopped due to the current situation. Currently awaiting transport to ultrasound. Course - Re-evaluation Re-evalutation: 10/01/18 12:53 Ultrasound reveals a 5 cm x 2 cm x 2 cm abscess to the left breast. Dr. Jennifer garza is at the bedside evaluating the patient. 10/01/18 13:20 Incision and drainage set up at the bedside for Dr. Collazo. 10/01/18 13:48 Dr. Collazo reports he drained approximately 15 cc of fluid from the breast. He would like patient to be discharged home he plans to follow-up with her Saturday morning in his clinic. - Vital Signs Vital signs: Temp Pulse Resp BP Pulse Ox 99.0 F 87 16 121/72 99 10/01/18 10:14 10/01/18 10:14 10/01/18 10:14 10/01/18 10:14 10/01/18 10:14 Discharge - Discharge Clinical Impression: Abscess Condition: Stable Disposition: HOME, SELF-CARE Additional Instructions: ABSCESS: You have an abscess (boil). This a pus-forming infection, usually due to staph. Some boils may be left to drain on their own, but most require lancing. From the time the tender lump first appears, it may be three or four days before the abscess is ready to christal. Local heat and rest help at this stage of treatment. An antibiotic may prevent spread of the infection. Once the abscess is opened, packing may be placed into it. This is done so pus is not sealed inside by premature closure of the cavity. The packing will be removed at your follow-up visit or you may be advised to remove it yourself at home. Sometimes this packing must be replaced a few times during healing. The wound will heal with surprisingly little scar. Depending on the size and location of an abscess, healing can take one to four weeks. You may shower and wash the area around the incision site two or three times a day. Antibiotics may be prescribed, but are usually not necessary after an abscess has been drained. If you develop fever, chills, worsening pain, or increasing swelling in the area, call the doctor or return immediately. POST INCISION AND DRAINAGE: You have had an incision made to allow drainage of an abscess. The incision must remain open so that pus and debris can drain from the wound. If the abscess cavity is large, packing is placed. This keeps the tissues from collapsing and trapping pus inside, while the body shrinks the cavity. The packing may need to be replaced every day or two. The physician will instruct you on the packing. Keep a bulky dressing over the area. Replace it if it becomes saturated with blood or pus. Do not disturb the packing (if present). You may shower and cleanse the area with gentle soap and warm water two or three times a day. Local warmth may be soothing, and may promote faster healing. Return if you develop high fever or chills, or if you note spreading redness, increasing swelling, or increasing tenderness. CEPHALEXIN: The antibiotic you've been prescribed is a member of the cephalosporin class. This type of antibiotic covers a wide variety of infections, including those of the skin, lungs, and urinary tract. It's useful for staph infections. This antibiotic is slightly similar to the penicillin family. In rare cases, a person who is allergic to penicillin will also be allergic to this medication. If you have had a severe allergic reaction to penicillin, and have not taken this antibiotic since that time, notify your doctor. Antibiotics which cover many germs ("broad spectrum" antibiotics) are more likely to cause diarrhea or "yeast" infections. Women prone to vaginal yeast problems may suffer an attack after taking this antibiotic. In infants, oral thrush (white spots "stuck" on the cheek) or yeast diaper rash may result. See your doctor if these problems occur. Call at once if you develop itching, hives, shortness of breath, or lightheadedness. TRIMETHOPRIM-SULFA: You have been given a prescription for trimethoprim-sulfa (TMS, Septra, Bactrim). This is a combination antibiotic of the sulfa class, often used for urinary tract infections, middle ear infections, bronchitis, shigella intestinal infection, and Pneumocystis pneumonia. TMS is usually well-tolerated. Occasional side effects include nausea and decreased appetite. Septra is not recommended for infants less than two months of age. Do not take this medication if you have experienced severe side effects or allergy to sulfa medicine. You should stop this medicine at once and contact your physician if you develop any rash, joint pain, shortness of breath, bruising, or jaundice (yellow color in the skin), or if you develop any other new or unusual symptoms. Rocephin You have been given an injection of an antibiotic called Rocephin (ceftriaxone). Sometimes the injection must be combined with antibiotic pills. For some infections, such as an uncomplicated ear infection, Rocephin provides all the antibiotic that's needed. The antibiotic will be in your body for about two days. For serious infections, we usually repeat doses of Rocephin daily. Side effects are very unusual following a shot. Women may develop vaginal yeast infections, and babies can get yeast (thrush) in the mouth following the use of antibiotics. Contact your physician if you have symptoms with this medication. Allergy to this antibiotic can result in hives, wheezing, faintness, or itching. If symptoms of allergy occur, call the doctor at once. FOLLOW-UP CARE: Most simple abscesses will not require a follow up visit. If you had packing placed in the abscess, remove it as instructed by the physician. If you have been referred to a physician for follow-up care, call the physicians office for an appointment as you were instructed or within the next two days. If you experience worsening or a significant change in your symptoms, return to the Emergency Department at any time for re-evaluation. Your given another dose of IM Rocephin today. Please continue to take the Bactrim and Keflex. Please see Dr. Collazo Saturday in his office as you discussed with him. Return to the emergency department or call Dr. Collazo's office if you develop redness that extends outside of the lining that was done on the skin. Return to the emergency department if you develop worsening symptoms in any way such as development of a fever. Please take Tylenol or ibuprofen for pain. Referrals: KWADWO COLLAZO MD [ACTIVE STAFF] - Follow up as needed
--- NOTE | 2018-10-01 12:47 | RADIOLOGY REPORT (SQ) ---
EXAM DESCRIPTION: U/S BREAST UNILATERAL LIMITED COMPLETED DATE/TIME: 10/01/2018 12:30 pm REASON FOR STUDY: right breast abscess COMPARISON: None TECHNIQUE: Static and Realtime grayscale interrogation of focal area(s) of concern in the left breas t(s) acquired. Selected color doppler/spectral images saved to PACS. LIMITATIONS: None. FINDINGS: In the upper inner quadrant, there is approximately 5 x 2 x 2 cm heterogeneous hypoechoic lesion with no internal flow and peripheral hyperemia consistent with an abscess. IMPRESSION: Breast abscess. BIRAD: 2 Benign findings.. RECOMMENDATION: RECOMMENDED FOLLOW-UP: Surgical consultation. COMMENT: The [employer] ([employer]) has developed recommendations for screening MRI of the breasts in certain patient populations, to be used in conjunction with mammography. Breast MRI s urveillance may be appropriate for women with more than 20% lifetime risk of developing breast cancer as determined by genetic testing, significant family history of the disease, or history of mantle r adiation for Hodgkins Disease. [employer]CR Practice Guidelines 2008. TECHNICAL DOCUMENTATION: FINDING NUMBER: (1) ASSESSMENT: (1) JOB ID: [id number] [employer]- All Rights Reserved Reading location - IP/workstation name: [email or web address]
[2018-10-01] MEDS ORDERED: CEFTRIAXONE INJ 1000 MG VIAL IM ONE (12:55)
[2018-10-01] MEDS ORDERED: LIDOCAINE 1% INJ-PF (10 MG/ML) 30 ML SDV INJ ONE (12:55)
--- NOTE | 2018-10-01 14:05 | PDOC CONSULTATION ---
Consultation Consult Date: 10/01/18 - breast abscess History of Present Illness Admission Date/PCP: ADRY AGUIAR MD Patient complains of: Right breast pain and redness History of Present Illness: MINDI THOMAS is a 33 year old female who is about a month and a half post and has been breast-feeding at home. Is been doing well for 6 weeks however over the course of the last week has developed increasing redness and some pain in her left breast. Presented initially to her OB who felt that it may be an early abscess or mastitis and was started on Bactrim and Keflex. The redness worsened and she now is been referred to the emergency room here at [place]. Denies any history of fever chills or sweats denies any history of significant breast pain. He continues to lactate on the left side using a pump and has been withheld breast-feeding because of the p.o. Bactrim. She continues to manually pump her left breast also in hopes of reducing the swelling. Ultrasound in the emergency room showed a abscess in the left upper outer quadrant of the breast. Past Medical History Medical History: None Past Surgical History Past Surgical History: Reports: None Social History Smoking Status: Never Smoker Family History Family History: Reviewed & Not Pertinent Parental Family History Reviewed: No Children Family History Reviewed: Unknown Sibling(s) Family History Reviewed.: Unknown Medication/Allergy Home Medications: Vits96/Iron Fum/Folic [ Tablet] 1 tab PO DAILY 08/29/18 Ibuprofen [Motrin 800 mg Tablet] 800 mg PO Q8HP PRN #60 tablet 09/11/18 Cephalexin Monohydrate [Keflex 500 mg Capsule] 500 mg PO QID 10/01/18 Sulfamethoxazole/Trimethoprim [Bactrim Ds Tablet] 1 each PO DAILY 10/01/18 Allergies/Adverse Reactions: No Known Allergies Allergy (Verified 10/01/18 10:06) Physical Exam Vital Signs: Temp Pulse Resp BP Pulse Ox 99.0 F 87 16 121/72 99 10/01/18 10:14 10/01/18 10:14 10/01/18 10:14 10/01/18 10:14 10/01/18 10:14 Intake & Output 09/30/18 10/01/18 10/02/18 06:59 06:59 06:59 Weight 84.1 kg General appearance: PRESENT: no acute distress Eye exam: PRESENT: EOMI, PERRLA Cardiovascular exam: PRESENT: RRR Torso Front/Back Image: 1 - Her left breast is entirely cellulitic all the way to the wall come for eventually there is no axillary extension and there is no extension up onto the chest wall or down onto the abdominal wall some ecchymoses around the nipple ski n cracking around the nipple palpation there is questionable fluctuance in the in the quadrant upper inner quadrant, no from the nipple sound there is approximately a 5-6 cm cyst in the left upper inner quadrant Skin exam: PRESENT: abrasion, dry, intact, warm. ABSENT: cyanosis, rash Results Impressions: Breast Ultrasound 10/01/18 10:21 IMPRESSION: Breast abscess. Status: Image reviewed by me - The ultrasound which was reviewed by me as well as the radiologist suggest a abscess in the left upper inner quadrant of the breast Assessment & Plan - Plan Summary Plan Summary: Impression a left breast abscess patient states that she has had some response with the antibiotic coverage she is already been on which includes flex and Bactrim in addition she is had one shot of Rocephin approximately 2 days ago using ultrasound guidance the left breast was aspirated with a removal approximately 50 cc of brown purulent area that was thick and this was sent off for culture and Gram stain. Plan we will continue with the antibiotic she is currently on we also will give her 1 additional dose of Rocephin while in the emergency room today Her appointment for reevaluation in my office in 2 days.
[2018-10-01 14:08] VITALS: BP 119/71
== END 2018-10-01 14:30 | disposition home or self-care (01) ==
LOC: ER 10:01
PROC: 0H9UXZZ (ICD-10-PCS; principal; 2018-10-01)
DX: N61.1 Abscess of the breast and nipple (principal)
CPT/HCPCS: 99284; 96372; 87070; 87205; 87075; 87077; 87186; 76642; 10060; J3490; J0696